=== PATIENT | female | born 1990 | race Two or more races ===

== ENCOUNTER 2019-08-22 00:54 | Inpatient (IN) | payer BC ==
[~2019-08-22] VITALS: Ht 165.1 cm; Wt 74.0 kg
[2019-08-22] MEDS ORDERED: OXYTOCIN 30U/ 0.9% NaCL 500ML 500 ML IV ONE (01:07)
[2019-08-22] MEDS: D5%-LACTATED RINGERS 1,000 ML IV SCH ×3 (01:07→17:07)
[2019-08-22] MEDS ORDERED: OXYTOCIN 30U/ 0.9% NaCL 500ML 500 ML IV PRN (01:07)
[2019-08-22] MEDS ORDERED: NEWBORN KIT ONE (01:16)
[2019-08-22] MEDS ORDERED: MISOPROSTOL 200 MCG TABLET ONE (01:16)
[2019-08-22] MEDS ORDERED: OXYTOCIN 30U/ 0.9% NaCL 500ML 500 ML ONE ×2 (01:16→17:50)
[2019-08-22] MEDS ORDERED: LIDOCAINE 1%, 20ML ONE (01:16)
[2019-08-22] MEDS: LACTATED RINGERS 1,000 ML IV SCH ×8 (01:21→18:52)
[2019-08-22 01:26] LABS: BASOPHILS % (AUTO) 0 % (0-1); EOSINOPHILS # (AUTO) 0.24 x10^3/uL (0-0.4); EOSINOPHILS % (AUTO) 2 % (1-7); LYMPHOCYTES # (AUTO) 1.83 x10^3/uL (1-3.4); LYMPHOCYTES % (AUTO) 17 % (22-44); MD NO; MEAN CORPUSCULAR HEMOGLOBIN 32.6 pg (27.0-34.8); MEAN CORPUSCULAR HGB CONC 33.7 g/dL (32.4-35.8); MEAN CORPUSCULAR VOLUME 96.9 fL (80-100); MEAN PLATELET VOLUME 8.6 fL (7.4-10.4); MONOCYTES # (AUTO) 1.06 x10^3/uL (0.2-0.8); MONOCYTES % (AUTO) 10 % (2-9); NEUTROPHILS % (AUTO) 71 % (42-75); PLATELET COUNT 302 x10^3/uL (130-400); RED CELL DISTRIBUTION WIDTH 13.8 % (9.6-15.2)
[2019-08-22] MEDS ORDERED: TERBUTALINE 1 MG/ML, 1ML IVPush PRN (01:30)
[2019-08-22] MEDS ORDERED: CALCIUM CARBONATE 500 MG TAB.CHEW PO PRN ×2 (01:30→17:00)
[2019-08-22] MEDS ORDERED: FENTANYL PF 100 MCG/2ML IVPush PRN (01:30)
[2019-08-22] MEDS ORDERED: ONDANSETRON 2MG/ML, 2ML IVPush PRN ×2 (01:30→11:00)
[2019-08-22] MEDS ORDERED: PLEASE ENTER ALLERGIES MC SCH (01:30)
[2019-08-22] MEDS ORDERED: TERBUTALINE 1 MG/ML, 1ML SQ PRN (01:30)
[2019-08-22] MEDS ORDERED: FENTANYL PF 100 MCG/2ML IV PRN (01:30)
[2019-08-22] MEDS ORDERED: FENTANYL/BUPIV./NS/PF 250 ML EPIDCONT SCH ×2 (01:37→10:52)
[2019-08-22] MEDS ORDERED: LACTATED RINGERS 1,000 ML IVBOLUS PRN (02:00)
[2019-08-22] MEDS ORDERED: EPHEDRINE 50 MG/ML, 1ML IVPush PRN ×2 (02:00→11:00)
[2019-08-22] MEDS ORDERED: FENTANYL PF 100 MCG/2ML ONE ×2 (05:18→08:16)
[2019-08-22] MEDS: IBUPROFEN 600 MG TABLET PO PRN (07:45)
[2019-08-22] MEDS ORDERED: BUPIVACAINE 0.25% ONE ×2 (08:16→08:57)
[2019-08-22] MEDS ORDERED: LIDOCAINE/PF 1.5%-EPI 1:200K, 30ML ONE (08:57)
[2019-08-22] MEDS: OXYTOCIN 30U/ 0.9% NaCL 500ML 500 ML IV SCH (16:39)
[2019-08-22] MEDS ORDERED: ONDANSETRON 2MG/ML, 2ML IV PRN (17:00)
[2019-08-22] MEDS ORDERED: OXYcodone/APAP 5/325MG TABLET PO PRN ×2 (17:00)
[2019-08-22] MEDS ORDERED: TRANEXAMIC ACID 100 MG/ML, 10ML IV ONE (17:00)
[2019-08-22] MEDS ORDERED: SIMETHICONE 80 MG CHEW TAB PO PRN (17:00)
[2019-08-22] MEDS ORDERED: MISOPROSTOL 200 MCG TABLET PR PRN (17:00)
[2019-08-22 19:30] VITALS: BP 105/69
[2019-08-22 23:28] VITALS: BP 98/69
[2019-08-23 00:41] LABS: BASOPHILS # (AUTO) 0.02 x10^3/uL (0-0.1); BASOPHILS % (AUTO) 0 % (0-1); EOSINOPHILS # (AUTO) 0.08 x10^3/uL (0-0.4); EOSINOPHILS % (AUTO) 1 % (1-7); LYMPHOCYTES # (AUTO) 1.66 x10^3/uL (1-3.4); LYMPHOCYTES % (AUTO) 12 % (22-44); MD NO; MEAN CORPUSCULAR HEMOGLOBIN 32.7 pg (27.0-34.8); MEAN CORPUSCULAR HGB CONC 33.5 g/dL (32.4-35.8); MEAN CORPUSCULAR VOLUME 97.6 fL (80-100); MEAN PLATELET VOLUME 8.6 fL (7.4-10.4); MONOCYTES # (AUTO) 1.28 x10^3/uL (0.2-0.8); MONOCYTES % (AUTO) 9 % (2-9); NEUTROPHILS # (AUTO) 11.13 x10^3/uL (1.8-6.8); NEUTROPHILS % (AUTO) 79 % (42-75); PLATELET COUNT 257 x10^3/uL (130-400); RED BLOOD COUNT 3.79 x10^6/uL (3.82-5.3); RED CELL DISTRIBUTION WIDTH 13.9 % (9.6-15.2)
[2019-08-23] MEDS: LACTATED RINGERS 1,000 ML IV SCH ×2 (01:07→02:52)
[2019-08-23] MEDS: OXYTOCIN 30U/ 0.9% NaCL 500ML 500 ML IV SCH (02:39)
[2019-08-23] MEDS: IBUPROFEN 600 MG TABLET PO PRN ×4 (03:13→22:53)
[2019-08-23 03:19] VITALS: BP 94/60
[2019-08-23 07:45] VITALS: BP 102/70
[2019-08-23] MEDS: PRENATAL VIT/IRON/FA 1 EACH TABLET PO SCH (11:16)
[2019-08-23] MEDS: DOCUSATE 100 MG CAPSULE PO PRN ×2 (11:16→22:54)
[2019-08-23 12:52] VITALS: BP 99/66
[2019-08-23 20:00] VITALS: BP 103/71
[2019-08-24] MEDS ORDERED: IBUP-1222 PO (04:41)
[2019-08-24 07:25] VITALS: BP 118/72
[2019-08-24] MEDS: IBUPROFEN 600 MG TABLET PO PRN ×2 (07:31→16:03)
[2019-08-24] MEDS: DOCUSATE 100 MG CAPSULE PO PRN (07:31)
[2019-08-24] MEDS: PRENATAL VIT/IRON/FA 1 EACH TABLET PO SCH (09:00)
== END 2019-08-24 18:00 | disposition home or self-care (01) | DRG 807 ==
LOC: LDOP 00:54 → LDIP 01:10 → 2NW 19:24
PROVIDERS: ADMIT Obstetrics & Gynecology; ATTEND Obstetrics & Gynecology
PROC: 10E0XZZ Delivery of Products of Conception, External Approach (ICD-10-PCS; principal; 2019-08-22)
PROC: 0KQM0ZZ Repair Perineum Muscle, Open Approach (ICD-10-PCS; 2019-08-22)
PROC: 10H07YZ Insertion of Other Device into Products of Conception, Via Natural or Artificial Opening (ICD-10-PCS; 2019-08-22)
PROC: 3E0R3BZ Introduction of Anesthetic Agent into Spinal Canal, Percutaneous Approach (ICD-10-PCS; 2019-08-22)
PROC: 00HU33Z Insertion of Infusion Device into Spinal Canal, Percutaneous Approach (ICD-10-PCS; 2019-08-22)
DX: O42.92 Full-term premature rupture of membranes, unspecified as to length of time between rupture and onset of labor (principal); Z37.0 Single live birth; O43.193 Other malformation of placenta, third trimester; O70.1 Second degree perineal laceration during delivery; Z3A.37 37 weeks gestation of pregnancy
CPT/HCPCS: 36415; J3490; 85025; 86850; 86900; G0378; J3010; J7120

== ENCOUNTER → 2020-08-30 | Day surgery (SDC) | payer BC ==
[~2020-08-30] VITALS: Ht 162.6 cm; Wt 62.2 kg
[~2020-08-30] MED LIST: ACETAMINOPHEN 500 MG TABLET PO ONE; CHLORHEXIDINE 15 ML UDC MM ONE; DIAZEPAM 5 MG/ML, 2ML IVPush PRN; DIPHENHYDRAMINE 50 MG/ML, 1ML IVPush PRN; FENTANYL PF 100 MCG/2ML IV PRN; GABAPENTIN 300 MG CAPSULE PO ONE; HYDROmorphone 1 MG/ML, 1ML INJ IVPush PRN; IBUP-1222 PO; LABETALOL 5MG/ML, 20ML IV PRN; LACTATED RINGERS 1,000 ML IV SCH; MEPERIDINE/PF 25MG/0.5ML IVPush PRN; NO HOME MEDS; ONDANSETRON 2MG/ML, 2ML IVPush PRN; OXYcodone 5 MG/5 ML ORAL.SOL UDC PO PRN; PROMETHAZINE 25 MG/ML, 1ML IVPush PRN; SCOPOLAMINE 1MG PATCH TD SCH; hydrALAzine 20 MG/ML, 1ML IV PRN
[2020-08-30 16:08] VITALS: BP 100/69
[2020-08-30 16:17] LABS: BASOPHILS % (AUTO) 0 % (0-1); EOSINOPHILS % (AUTO) 2 % (1-7); LYMPHOCYTES % (AUTO) 23 % (22-44); MEAN CORPUSCULAR HEMOGLOBIN 31.8 pg (27.0-34.8); MEAN PLATELET VOLUME 8.2 fL (7.4-10.4); MONOCYTES % (AUTO) 8 % (2-9); NEUTROPHILS % (AUTO) 67 % (42-75); PLATELET COUNT 378 x10^3/uL (130-400); RED BLOOD COUNT 4.58 x10^6/uL (3.82-5.3); RED CELL DISTRIBUTION WIDTH 13.2 % (9.6-15.2)
[2020-08-30 16:21] LABS: ALANINE AMINOTRANSFERASE 15 U/L (12-78); ALBUMIN 3.9 g/dL (3.4-5.0); ANION GAP 6 mmol/L (5-15); CALCIUM 8.6 mg/dL (8.5-10.1); CHLORIDE 108 mmol/L (98-107); CREATININE 0.79 mg/dL (0.55-1.02)
[2020-08-30 16:25] LABS: ALKALINE PHOSPHATASE 52 U/L (45-117); BILIRUBIN,TOTAL 0.7 mg/dL (0.2-1.0); TOTAL PROTEIN 7.4 g/dL (6.4-8.2)
[2020-08-30 16:37] LABS: MD NO
[2020-08-30 16:40] LABS: HCG UR SG 1.009 (1.003-1.030)
== END | disposition home or self-care (01) ==
LOC: OR 14:58
PROVIDERS: ATTEND Obstetrics & Gynecology
DX: D27.1 Benign neoplasm of left ovary (principal); Z53.8 Procedure and treatment not carried out for other reasons; Z33.1 Pregnant state, incidental; Z88.1 Allergy status to other antibiotic agents; Z88.8 Allergy status to other drugs, medicaments and biological substances; Z79.899 Other long term (current) drug therapy; Z98.890 Other specified postprocedural states; Z20.828 Contact with and (suspected) exposure to other viral communicable diseases
CPT/HCPCS: 36415; 80053; 81025; 84702; 85025; 86850; 86900; 87635; J7120

== ENCOUNTER 2021-04-08 18:02 | Outpatient (CLI) | payer BC ==
[~2021-04-08] VITALS: Ht 162.6 cm; Wt 73.2 kg
[~2021-04-08 18:02] MED LIST changes: -ACETAMINOPHEN 500 MG TABLET PO ONE; -CHLORHEXIDINE 15 ML UDC MM ONE; -DIAZEPAM 5 MG/ML, 2ML IVPush PRN; -DIPHENHYDRAMINE 50 MG/ML, 1ML IVPush PRN; -FENTANYL PF 100 MCG/2ML IV PRN; -GABAPENTIN 300 MG CAPSULE PO ONE; -HYDROmorphone 1 MG/ML, 1ML INJ IVPush PRN; -LABETALOL 5MG/ML, 20ML IV PRN; -LACTATED RINGERS 1,000 ML IV SCH; -MEPERIDINE/PF 25MG/0.5ML IVPush PRN; -ONDANSETRON 2MG/ML, 2ML IVPush PRN; -OXYcodone 5 MG/5 ML ORAL.SOL UDC PO PRN; -PROMETHAZINE 25 MG/ML, 1ML IVPush PRN; -SCOPOLAMINE 1MG PATCH TD SCH; -hydrALAzine 20 MG/ML, 1ML IV PRN
[2021-04-08 18:43] VITALS: BP 108/65
[2021-04-08 19:05] LABS: MICROSCOPIC INDICATED
== END 2021-04-08 19:55 | disposition home or self-care (01) ==
LOC: LDOP 18:02
PROVIDERS: ATTEND Obstetrics & Gynecology
DX: O26.893 Other specified pregnancy related conditions, third trimester (principal); R10.9 Unspecified abdominal pain; Z3A.35 35 weeks gestation of pregnancy
CPT/HCPCS: 59025; 81001; 87086; 89060; Q0114

== ENCOUNTER 2021-04-13 12:53 | Outpatient (CLI) | payer BC ==
[~2021-04-13] VITALS: Ht 162.6 cm; Wt 75.9 kg
[2021-04-13 13:09] VITALS: BP 111/74
[2021-04-13] MEDS ORDERED: PROMETHAZINE 25 MG/ML, 1ML IM ONE (14:30)
[2021-04-13] MEDS ORDERED: MEPERIDINE/PF 50 MG/ML IM ONE (14:30)
== END 2021-04-13 14:56 | disposition home or self-care (01) ==
LOC: LDOP 12:53
PROVIDERS: ATTEND Obstetrics & Gynecology
DX: O26.893 Other specified pregnancy related conditions, third trimester (principal); R10.9 Unspecified abdominal pain; Z3A.36 36 weeks gestation of pregnancy
CPT/HCPCS: 59025

== ENCOUNTER 2021-04-30 23:36 | Inpatient (IN) | payer BC ==
[~2021-04-30] VITALS: Ht 162.6 cm; Wt 78.0 kg
[2021-05-01] MEDS ORDERED: ONDANSETRON 2MG/ML, 2ML ONE (00:17)
[2021-05-01] MEDS ORDERED: TERBUTALINE 1 MG/ML, 1ML IVPush PRN (00:30)
[2021-05-01] MEDS ORDERED: SODIUM CITRATE/CITRIC ACID 30 ML UDC PO PRN (00:30)
[2021-05-01] MEDS ORDERED: FENTANYL PF 100 MCG/2ML IVPush PRN (00:30)
[2021-05-01] MEDS ORDERED: FENTANYL PF 100 MCG/2ML IV PRN (00:30)
[2021-05-01] MEDS ORDERED: OXYTOCIN 30U/ 0.9% NaCL 500ML 500 ML IV ONE (00:30)
[2021-05-01] MEDS ORDERED: OXYTOCIN 30U/ 0.9% NaCL 500ML 500 ML IV PRN (00:30)
[2021-05-01] MEDS ORDERED: METOCLOPRAMIDE 5 MG/ML, 2ML IVPush PRN (00:30)
[2021-05-01] MEDS ORDERED: ONDANSETRON 2MG/ML, 2ML IVPush PRN (00:30)
[2021-05-01] MEDS ORDERED: TERBUTALINE 1 MG/ML, 1ML SQ PRN (00:30)
[2021-05-01 00:39] LABS: BASOPHILS % (AUTO) 0 % (0-1); EOSINOPHILS % (AUTO) 1 % (1-7); LYMPHOCYTES % (AUTO) 13 % (22-44); MEAN CORPUSCULAR HEMOGLOBIN 32.3 pg (27.0-34.8); MEAN CORPUSCULAR HGB CONC 34.3 g/dL (32.4-35.8); MEAN PLATELET VOLUME 9.1 fL (7.4-10.4); MONOCYTES % (AUTO) 10 % (2-9); NEUTROPHILS % (AUTO) 76 % (42-75); PLATELET COUNT 253 x10^3/uL (130-400); RED BLOOD COUNT 4.08 x10^6/uL (3.82-5.3); RED CELL DISTRIBUTION WIDTH 14.5 % (9.6-15.2)
[2021-05-01] MEDS ORDERED: LIDOCAINE 1%, 20ML ONE (00:46)
[2021-05-01] MEDS ORDERED: MISOPROSTOL 200 MCG TABLET ONE (00:46)
[2021-05-01] MEDS ORDERED: BUPIVACAINE 0.25% ONE (00:55)
[2021-05-01] MEDS ORDERED: LACTATED RINGERS 1,000 ML IV SCH ×2 (01:00)
[2021-05-01] MEDS ORDERED: NALOXONE 0.4 MG/ML, 1ML IVPush PRN (01:00)
[2021-05-01] MEDS ORDERED: EPHEDRINE 50 MG/ML, 1ML IVPush PRN ×2 (01:00)
[2021-05-01] MEDS ORDERED: LACTATED RINGERS 1,000 ML IVBOLUS PRN ×2 (01:00)
[2021-05-01] MEDS ORDERED: FENTANYL/BUPIV./NS/PF 250 ML EPIDCONT SCH ×2 (01:00)
[2021-05-01] MEDS ORDERED: NEWBORN KIT ONE (02:52)
[2021-05-01] MEDS ORDERED: ONDANSETRON 2MG/ML, 2ML IV PRN (05:00)
[2021-05-01] MEDS ORDERED: SIMETHICONE 80 MG CHEW TAB PO PRN (05:00)
[2021-05-01] MEDS ORDERED: OXYcodone/APAP 5/325MG TABLET PO PRN ×2 (05:00)
[2021-05-01] MEDS: OXYTOCIN 30U/ 0.9% NaCL 500ML 500 ML IV SCH ×2 (05:00→15:00)
[2021-05-01 08:10] VITALS: BP 109/64
[2021-05-01] MEDS: PRENATAL VIT/IRON/FA 1 EACH TABLET PO SCH (09:00)
[2021-05-01 11:03] LABS: BASOPHILS % (AUTO) 0 % (0-1); EOSINOPHILS % (AUTO) 0 % (1-7); LYMPHOCYTES % (AUTO) 8 % (22-44); MEAN CORPUSCULAR HEMOGLOBIN 32.1 pg (27.0-34.8); MEAN CORPUSCULAR HGB CONC 33.8 g/dL (32.4-35.8); MEAN PLATELET VOLUME 9.1 fL (7.4-10.4); MONOCYTES % (AUTO) 8 % (2-9); NEUTROPHILS % (AUTO) 83 % (42-75); PLATELET COUNT 222 x10^3/uL (130-400); RED BLOOD COUNT 3.98 x10^6/uL (3.82-5.3); RED CELL DISTRIBUTION WIDTH 14.2 % (9.6-15.2)
[2021-05-01] MEDS: DOCUSATE 100 MG CAPSULE PO PRN (11:54)
[2021-05-01 13:00] VITALS: BP 102/64
[2021-05-01] MEDS: IBUPROFEN 600 MG TABLET PO PRN ×2 (13:06→23:38)
[2021-05-01 20:45] VITALS: BP 99/63
[2021-05-02] MEDS: OXYTOCIN 30U/ 0.9% NaCL 500ML 500 ML IV SCH (01:00)
[2021-05-02 01:20] VITALS: BP 96/59
[2021-05-02] MEDS ORDERED: IBUP-1222 PO (07:01)
[2021-05-02 08:10] VITALS: BP 103/72
[2021-05-02] MEDS: PRENATAL VIT/IRON/FA 1 EACH TABLET PO SCH (09:00)
[2021-05-02] MEDS: DOCUSATE 100 MG CAPSULE PO PRN (10:21)
== END 2021-05-02 11:05 | disposition home or self-care (01) | DRG 807 ==
LOC: LDOP 23:36 → LDIP 05-01 00:06 → 2NE 05-01 04:54 → 2NW 05-01 06:30
PROVIDERS: ADMIT Obstetrics & Gynecology; ATTEND Obstetrics & Gynecology
PROC: 10E0XZZ Delivery of Products of Conception, External Approach (ICD-10-PCS; principal; 2021-05-01)
PROC: 0KQM0ZZ Repair Perineum Muscle, Open Approach (ICD-10-PCS; 2021-05-01)
PROC: 10907ZC Drainage of Amniotic Fluid, Therapeutic from Products of Conception, Via Natural or Artificial Opening (ICD-10-PCS; 2021-05-01)
PROC: 3E0R3BZ Introduction of Anesthetic Agent into Spinal Canal, Percutaneous Approach (ICD-10-PCS; 2021-05-01)
PROC: 00HU33Z Insertion of Infusion Device into Spinal Canal, Percutaneous Approach (ICD-10-PCS; 2021-05-01)
DX: O66.0 Obstructed labor due to shoulder dystocia (principal); Z37.0 Single live birth; Z3A.38 38 weeks gestation of pregnancy; O70.1 Second degree perineal laceration during delivery; Z20.822 Contact with and (suspected) exposure to COVID-19
CPT/HCPCS: 36415; 85025; 86592; 86850; 86900; 87635; G0378

== ENCOUNTER 2021-06-04 09:54 | Outpatient (CLI) | payer BC ==
[2021-06-04] MEDS ORDERED: PREN1TAB10 PO (10:22)
[2021-06-04 10:57] LABS: MICROSCOPIC NOT IND
[2021-06-04 11:04] LABS: BASOPHILS % (AUTO) 0 % (0-1); EOSINOPHILS % (AUTO) 4 % (1-7); LYMPHOCYTES % (AUTO) 28 % (22-44); MEAN CORPUSCULAR HEMOGLOBIN 31.9 pg (27.0-34.8); MONOCYTES % (AUTO) 13 % (2-9); NEUTROPHILS % (AUTO) 55 % (42-75); PLATELET COUNT 259 x10^3/uL (130-400); RED BLOOD COUNT 4.84 x10^6/uL (3.82-5.3); RED CELL DISTRIBUTION WIDTH 13.3 % (9.6-15.2)
[2021-06-04 11:10] LABS: ALBUMIN 3.7 g/dL (3.4-5.0); ANION GAP 6 mmol/L (5-15); CHLORIDE 110 mmol/L (98-107)
[2021-06-04 11:16] LABS: ALANINE AMINOTRANSFERASE 37 U/L (12-78); ALKALINE PHOSPHATASE 66 U/L (45-117); BILIRUBIN,TOTAL 0.6 mg/dL (0.2-1.0); CREATININE 0.97 mg/dL (0.55-1.02); TOTAL PROTEIN 7.5 g/dL (6.4-8.2)
== END 2021-06-04 23:59 | disposition home or self-care (01) ==
LOC: STAR 09:54
PROVIDERS: ATTEND Obstetrics & Gynecology
DX: Z01.812 Encounter for preprocedural laboratory examination (principal); Z20.822 Contact with and (suspected) exposure to COVID-19; D36.9 Benign neoplasm, unspecified site; I44.4 Left anterior fascicular block
CPT/HCPCS: 36415; 80053; 81003; 84702; 85025; 93005; U0003; U0005

== ENCOUNTER 2021-06-10 12:12 | Inpatient (IN) | payer BC ==
[~2021-06-10] VITALS: Ht 165.1 cm; Wt 71.1 kg
[~2021-06-10 12:12] MED LIST changes: +PREN1TAB10 PO
[2021-06-10 12:59] VITALS: BP 97/68
[2021-06-10] MEDS ORDERED: CHLORHEXIDINE 15 ML UDC PO ONE (13:00)
[2021-06-10] MEDS ORDERED: CHLORHEXIDINE 15 ML UDC ONE (13:05)
[2021-06-10 13:36] LABS: HCG UR SG 1.011 (1.003-1.030)
[2021-06-10] MEDS ORDERED: MIDAZOLAM 1 MG/ML, 2ML ONE (13:46)
[2021-06-10] MEDS ORDERED: FENTANYL PF 250 MCG/5ML ONE ×2 (13:46→15:11)
[2021-06-10] MEDS ORDERED: PROPOFOL 50 ML ONE ×2 (14:44→14:48)
[2021-06-10] MEDS ORDERED: EPINEPHRINE 1 MG/ML, 1ML ONE (15:26)
[2021-06-10] MEDS ORDERED: BUPIVACAINE/PF 0.25% ONE (15:26)
[2021-06-10] MEDS ORDERED: OXYcodone 5 MG/5 ML ORAL.SOL UDC ONE (15:48)
[2021-06-10] MEDS ORDERED: MEPERIDINE/PF 25MG/ML,1ML ONE (15:48)
[2021-06-10] MEDS ORDERED: EPHEDRINE 50 MG/ML, 1ML IM PRN (16:00)
[2021-06-10] MEDS ORDERED: LABETALOL 5MG/ML, 20ML IV PRN (16:00)
[2021-06-10] MEDS ORDERED: HYDROmorphone 1 MG/ML, 1ML INJ IVPush PRN (16:00)
[2021-06-10] MEDS ORDERED: LACTATED RINGERS 1,000 ML IV SCH (16:00)
[2021-06-10] MEDS ORDERED: OXYcodone/APAP 5/325MG TABLET PO PRN (16:00)
[2021-06-10] MEDS ORDERED: PROMETHAZINE 25 MG/ML, 1ML IVPush PRN (16:00)
[2021-06-10] MEDS ORDERED: ACETAMINOPHEN 325 MG TABLET PO PRN (16:00)
[2021-06-10] MEDS ORDERED: OXYcodone 5 MG/5 ML ORAL.SOL UDC PO PRN (16:00)
[2021-06-10] MEDS ORDERED: hydrALAzine 20 MG/ML, 1ML IV PRN (16:00)
[2021-06-10] MEDS ORDERED: SIMETHICONE 80 MG CHEW TAB PO SCH (16:00)
[2021-06-10] MEDS ORDERED: KETOROLAC 30 MG/1 ML IVPush PRN (16:00)
[2021-06-10] MEDS ORDERED: HYDROmorphone 2 MG/ML, 1ML IVPush PRN (16:00)
[2021-06-10] MEDS ORDERED: ONDANSETRON 2MG/ML, 2ML IVPush PRN ×2 (16:00)
[2021-06-10] MEDS ORDERED: LORazepam 2 MG/ML, 1ML IVPush PRN (16:00)
[2021-06-10] MEDS ORDERED: MEPERIDINE/PF 25MG/0.5ML IVPush PRN (16:00)
[2021-06-10] MEDS ORDERED: FENTANYL PF 100 MCG/2ML IV PRN (16:00)
[2021-06-10] MEDS ORDERED: METHOCARBAMOL 1,000 MG in DEXTROSE 5% 100 ML IV PRN (16:00)
[2021-06-10] MEDS ORDERED: EPHEDRINE 50 MG/ML, 1ML IVPush PRN (16:00)
[2021-06-10] MEDS ORDERED: DOCU-131 PO (16:23)
[2021-06-10] MEDS ORDERED: OXYC1TAB12 PO (16:23)
[2021-06-10] MEDS ORDERED: IBUP-1222 PO (16:23)
[2021-06-10] MEDS ORDERED: DOCUSATE 100 MG CAPSULE PO SCH (21:00)
== END 2021-06-10 19:07 | disposition home or self-care (01) | DRG 830 ==
LOC: OUT 12:12 → ORIP 15:46
PROVIDERS: ADMIT Obstetrics & Gynecology; ATTEND Obstetrics & Gynecology
PROC: 0UB50ZZ Excision of Right Fallopian Tube, Open Approach (ICD-10-PCS; 2021-06-10)
PROC: 0UT00ZZ Resection of Right Ovary, Open Approach (ICD-10-PCS; principal; 2021-06-10 14:00)
DX: D36.9 Benign neoplasm, unspecified site (principal); N83.201 Unspecified ovarian cyst, right side; Z80.3 Family history of malignant neoplasm of breast; Z83.3 Family history of diabetes mellitus; Z20.822 Contact with and (suspected) exposure to COVID-19
CPT/HCPCS: 36415; 81025; 86850; 86900; 87635; 88305; J0171; J2250; J2704; J3010